=== PATIENT | female | born 1955 ===

== ENCOUNTER 2022-04-15 07:06 | Day surgery (SDC) | payer MEDICARE ==
[~2022-04-15] VITALS: Ht 160 cm; Wt 91.9 kg
[2022-04-15] MEDS ORDERED: LIPITOR 40MG TA40 MG PO ×2 (07:31→07:32)
[2022-04-15] MEDS ORDERED: CENTRUM PO (07:32)
[2022-04-15] MEDS ORDERED: CALTRATE PO (07:33)
[2022-04-15] MEDS ORDERED: VITAMIN D PO (07:33)
[2022-04-15 07:38] VITALS: BP 138/89; PULSE 76; TEMP 97.9
[2022-04-15 10:05] VITALS: BP 132/77; PULSE 71; TEMP 97.2
[2022-04-15 10:20] VITALS: BP 126/69; PULSE 69
[2022-04-15 10:35] VITALS: BP 137/78; PULSE 68
--- NOTE | 2022-04-15 11:12 | NUR ---
1005 PT RETURNED TO BAY 1 VIA CART. TRANSFERRED TO CHAIR WITH RN ASSIST. ALERT AND ORIENTED. MONITORS ATTACHED, INTERVALS AND ALARMS SET. VSS. PT DENIES PAIN OR NAUSEA. FOOD AND DRINK PROVIDED. CALL LIGHT IN REACH. 1020 VSS. PT DENIES DISCOMFORT. TOLERATING FOOD AND DRINK WELL. 1035 VSS. PT DENIES DISCOMFORT. 1100 REVIEWED DISCHARGE INSTRUCTIONS AND EDUCATION MATERIAL, ANSWERED ALL QUESTIONS. IV REMOVED WITHOUT COMPLICATIONS. PT ALLOWED TO DRESS. 1112 TRANSFERRED PT VIA WHEELCHAIR TO PERSONAL VEHICLE TO BE DRIVEN HOME BY .
== END 2022-04-15 11:03 | disposition home or self-care (01) ==
LOC: SDCO 07:06
DX: Z12.11 Encounter for screening for malignant neoplasm of colon (principal); D12.2 Benign neoplasm of ascending colon; D12.0 Benign neoplasm of cecum; K63.5 Polyp of colon; K57.30 Diverticulosis of large intestine without perforation or abscess without bleeding; K64.0 First degree hemorrhoids; K21.9 Gastro-esophageal reflux disease without esophagitis; E11.9 Type 2 diabetes mellitus without complications
CPT/HCPCS: J2405; J2704